=== PATIENT | male | born 1940 ===

== ENCOUNTER 2018-07-12 07:08 | Day surgery (SDC) | payer OTHER ==
[~2018-07-12 07:08] MED LIST: Intestinex CAP PO; OXYC1TAB9 PO; PANTOPRAZOLE SO40 MG PO
== END 2018-07-12 12:45 | disposition home or self-care (01) ==
LOC: AMB-ENDOS 07:08 → EDBD 11:00 → AMB-ENDOS 12:45
DX: K57.32 Diverticulitis of large intestine without perforation or abscess without bleeding (principal); K64.1 Second degree hemorrhoids